=== PATIENT | female | born 2000 | race Asian ===

== ENCOUNTER 2018-07-22 19:50 | Emergency (ER) | payer MEDICAID, OTHER ==
[~2018-07-22] VITALS: Ht 147.3 cm; Wt 56.0 kg
[2018-07-22 20:41] LABS: INR 1.2 INR; PROTHROMBIN TIME 11.9 SECONDS (9.0-12.0)
[2018-07-22 20:46] LABS: ALANINE AMINOTRANSFERASE 27 U/L (12-78); ALBUMIN 4.8 G/DL (3.4-5.0); ALBUMIN/GLOBULIN RATIO 1.1 (1.1-1.5); ALKALINE PHOSPHATASE 102 IU/L (20-180); ANION GAP 19 (8-16); ASPARTATE AMINO TRANSFERASE 12 U/L (10-37); BILIRUBIN,TOTAL 0.7 MG/DL (0.1-1.0); BLOOD UREA NITROGEN 18 MG/DL (7-18); BUN/CREATININE RATIO 19.1 (6.6-38.0); CALCIUM 9.8 MG/DL (8.5-10.1); CHLORIDE 103 MMOL/L (99-107); CREATININE 0.94 MG/DL (0.40-0.90); GLUCOSE 108 MG/DL (70-104); SODIUM 139 MMOL/L (135-145); TOTAL CARBON DIOXIDE 16.6 MMOL/L (24-32); TOTAL PROTEIN 9.2 G/DL (6.4-8.2); eGFR 77 ML/MIN
[2018-07-22 21:14] LABS: BASOPHILS % (AUTO) 0.1 % (0-1); EOSINOPHILS % (AUTO) 0 % (0-6); HEMATOCRIT 40.5 % (35.0-45.0); HEMOGLOBIN 13.5 g/dl (12.0-16.0); LYMPHOCYTES % (AUTO) 5.7 % (21-51); MEAN CORPUSCULAR HEMOGLOBIN 29.6 PG (27.0-31.0); MEAN CORPUSCULAR HGB CONC 33.3 g/dL (33.0-36.5); MEAN CORPUSCULAR VOLUME 89.1 FL (78-98); MEAN PLATELET VOLUME 7.2 FL (7.4-10.4); MONOCYTES # (AUTO) 0.4 X10'3 (0-0.9); MONOCYTES % (AUTO) 2.3 % (2-12); NEUTROPHILS # (AUTO) 16.1 X10'3 (1.8-7.7); NEUTROPHILS % (AUTO) 91.9 % (42-75); PLATELET COUNT 301 X10'3 (140-440); RED BLOOD COUNT 4.55 X10'6 (4.20-5.60); WHITE BLOOD COUNT 17.5 X10'3 (4.5-11.0)
[2018-07-22] MEDS ORDERED: normal saline 1000ML IV soln IVB ONE (21:30)
[2018-07-22] MEDS ORDERED: ondansetron/PF 4mg/2ml inj IV ONE (21:30)
[2018-07-22 21:33] LABS: URINE HCG NEGATIVE (NEG)
--- NOTE | 2018-07-22 21:49 | NUR ---
PT C/O FORCEFUL RETCHING STARTING AT 1400 TODAY, NOTED TO HAVE COFFEE GROUND EMESIS.
[2018-07-22 21:50] LABS: CLARITY,URINE SLIGHTLY CLOUDY (Clear); COLOR,URINE YELLOW (Yellow); GLUCOSE, URINE NEGATIVE (Neg); KETONES,URINE >=80 mg/dl (Neg); LEUKOCYTE ESTERASE ,URINE NEGATIVE (Neg); NITRITES, URINE NEGATIVE (Neg); OCCULT BLOOD,URINE LARGE (Neg); PH,URINE 5.5 (4.8-8.0); PROTEIN,URINE 100 mg/dl (Neg); UROBILINOGEN,URINE 0.2 E.U/dL (0.2-1.0)
[2018-07-22 21:52] LABS: UA COLLECTION TYPE CLN CATCH MIDSTREAM
[2018-07-22 22:03] LABS: GASTRIC OCCULT BLOOD POSITIVE (Neg)
--- NOTE | 2018-07-22 22:12 | NUR ---
NAUSEA IMPROVED AFTER MEDS, NO FURTHER EMESIS NOTED.
[2018-07-22] MEDS ORDERED: famotidine/PF 10 mg/ml inj IV ONE (22:30)
[2018-07-22 22:46] LABS: MUCUS STRANDS MANY /LPF (Neg); SQUAMOUS EPITHELIAL CELL,UR FEW /LPF (FEW)
[2018-07-22 22:47] LABS: RBC,URINE 20-50 /HPF (0-2); WBC,URINE 0-4 /HPF (0-4)
[2018-07-22 22:48] LABS: BACTERIA,URINE NONE SEEN /HPF (Neg)
[2018-07-22 22:49] LABS: HYALINE CASTS 0-3 /LPF (NEGATIVE)
[2018-07-22 22:54] LABS: ETHANOL < 0.010 GM/DL (0.0-0.010)
[2018-07-22] MEDS ORDERED: PANT-47 PO (23:02)
[2018-07-22] MEDS ORDERED: ONDA4TAB12 PO (23:03)
[2018-07-22 23:13] VITALS: BP 119/76
[2018-07-23 02:18] LABS: TOTAL CELLS COUNTED 100
[2018-07-23 02:19] LABS: PLATELET ESTIMATE NORMAL
== END 2018-07-22 23:15 | disposition home or self-care (01) ==
LOC: ER 19:51
DX: K92.0 Hematemesis (principal); K29.70 Gastritis, unspecified, without bleeding
CPT/HCPCS: 36415; 74176; 80053; 80320; 81001; 81025; 82271; 85025; 85610; 86885; 86900; 86901; 96361; 96374; 96375; 99284; J2405; J3490; J7030

== ENCOUNTER 2020-07-13 21:30 | Emergency (ER) | payer MEDICAID ==
[~2020-07-13] VITALS: Ht 149.9 cm; Wt 61.4 kg
[~2020-07-13 21:30] MED LIST: ONDA4TAB12 PO; PANT-47 PO
[2020-07-13 21:45] VITALS: BP 164/88
[2020-07-14] MEDS ORDERED: DOXYCYCLINE 100MG CAPSULE PO STA
[2020-07-14] MEDS ORDERED: DOXY100C43 PO (00:02)
== END 2020-07-14 00:11 | disposition home or self-care (01) ==
LOC: ER 21:31
DX: L03.211 Cellulitis of face (principal); F12.90 Cannabis use, unspecified, uncomplicated; Z79.2 Long term (current) use of antibiotics; Z79.899 Other long term (current) drug therapy
CPT/HCPCS: 99284

== ENCOUNTER 2023-12-17 11:08 | Emergency (ER) | payer MEDICAID ==
[~2023-12-17] VITALS: Ht 149.9 cm; Wt 48.9 kg
[~2023-12-17 11:08] MED LIST changes: +ONDA-243 PO; -ONDA4TAB12 PO
[2023-12-17] MEDS ORDERED: HYDR-3686 PO (12:25)
[2023-12-17] MEDS: hydrOXYzine 25 MG tablet PO ONE (12:28)
[2023-12-17 12:31] VITALS: BP 135/89; PULSE 88; RESP 17; TEMP 99.5; O2SAT 99
== END 2023-12-17 12:35 | disposition home or self-care (01) ==
LOC: ER 11:08
DX: R07.89 Other chest pain (principal); F12.90 Cannabis use, unspecified, uncomplicated; Z79.899 Other long term (current) drug therapy
CPT/HCPCS: 71045; 93005; 99283; Q0177

== ENCOUNTER 2025-02-14 16:48 | Emergency (ER) | payer MEDICAID, BC ==
[~2025-02-14] VITALS: Ht 149.9 cm; Wt 49.5 kg
[~2025-02-14 16:48] MED LIST changes: +HYDR-3686 PO
--- NOTE | 2025-02-14 17:21 | Physician Documentation ---
History of Present Illness Chief Complaint: Flank Pain Stated Complaint: KIDNEY STONES Primary Medical Doctor: [facility] Pleasant 24-year-old female that presents to the emergency department for evaluation of left lower abdominal pain left flank pain fever chills since Tuesday. Patient reports she has a history of UTIs and a history of renal calculi. Patient has reported at this time. Medication Reconciliation Allergies: Coded Allergies: latex (Verified Allergy, Unknown, RASH, 02/14/25) Scheduled Clindamycin HCl (Clindamycin HCl), 1 CAP PO Q8H Hydroxyzine Hcl (Atarax), 1 TAB PO BID Pantoprazole Sodium (PROTONIX tablet), 1 TAB PO DAILY Phenazopyridine Hcl (Pyridium tablet), 1 TAB PO Q8H Scheduled PRN ONDANSETRON ODT 4mg tablet (Ondansetron Odt), 1 TABLET PO Q6H PRN PRN for nausea/vomiting Past Medical History Past Medical History: No Pertinent History Past Surgical History: no surgical history Alcohol Use: None Drug Use: marijuana Lives with: Family Lives In: Home Review of Systems ROS As stated above in the HPI, otherwise all systems are reviewed and negative. Physical Exam Vital Signs: Heart Rate: 78, Respiratory Rate: 16, BP: 143/100, Pulse Oximetry: 100, Weight: 49.500 Oxygen Flow Rate: 0 Physical Exam VITALS: Reviewed and as above. GENERAL: Alert, no apparent distress. HEENT: Normocephalic, atraumatic, PERRL, EOMI, dry mucosa, no erythema RESPIRATORY: Lungs clear, normal breath sounds, no respiratory distress. CHEST: No accessory muscle use, no retractions CV: Regular rate, rhythm, no edema, no murmur, No: JVD GI: Soft, tenderness with palpation to the lower abdomen bilaterally, bowels sounds present, no rebound, guarding, or rigidity BACK: Positive CVA tenderness, no swelling. MUSCULOSKELETAL No deformities, no edema SKIN: Warm and dry, no rash NEURO: Oriented x4, No motor or sensory deficit PSYCH: Normal mood and affect, no agitation Progress Results/Orders Results/Orders Vital Signs 02/14/25 17:16 Pulse 78 Resp 16 B/P (MAP) 143/100 Pulse Ox 100 O2 Flow Rate 0 Medical Decision Making Additional information obtaine: other Findings Patient: 24-year-old female Presenting complaints: Dysuria, bilateral flank pain, fever with chills. Relevant history: Recurrent urinary tract infections (UTIs), renal calculi. ED course: Patient presented with several days of urinary symptoms and bilateral flank pain, accompanied by fever and chills. She denied gastrointestinal symptoms (nausea, vomiting, diarrhea). Urinalysis confirmed UTI. No evidence of sepsis or acute kidney injury on initial evaluation. ED interventions: Administered 1g IV ceftriaxone, Toradol injection, and Pyridium. Initiated oral clindamycin for outpatient therapy. Prescribed phenazopyridine for symptomatic relief. Discharge diagnosis: Acute urinary tract infection, likely complicated by history of renal calculi. Medications at discharge: Clindamycin (dose and duration per ED prescription). Phenazopyridine (as needed for dysuria, per prescription). Follow-up plan: Patient instructed to follow up with primary care provider for reassessment and further management, including evaluation for recurrent UTI and renal calculi. Advised to return to ED for worsening symptoms, recurrence, or development of new concerning symptoms (e.g., persistent fever, rigors, severe pain, inability to tolerate oral intake, or signs of systemic illness). Patient education and safety: Diagnosis, treatment plan, and return precautions were discussed verbally and provided in written form, consistent with best practices for ED discharge communication. Patient demonstrated understanding of instructions and opportunity for questions was provided. Disposition: Stable for discharge. No acute intervention required beyond current management. Continuity of care: Discharge summary to be sent to primary care provider to ensure seamless transition and follow-up. Differential Dx:Considerations: Urinary obstruction, Urinary tract infection, Other Departure Disposition: 01 HOME / SELF CARE / HOMELESS Impression: Primary Impression: Acute urinary tract infection Additional Impression: Costovertebral (angle) tenderness, bilateral Discharge Instructions: Pyelonephritis, Adult, Urinary Tract Infection, Adult Additional Instructions: You were treated today for a urinary tract infection (UTI) and received antibiotics and medicine to help with pain. You also have a history of kidney stones. Medications: You received an antibiotic called ceftriaxone (Rocephin) in the emergency department. You were prescribed clindamycin to continue at home. Take it exactly as directed. Finish the entire course, even if you start to feel better. You were prescribed Pyridium to help with burning or pain when you urinate. This medicine may turn your urine orange; this is normal. What to expect: Most people start to feel better within a few days of starting antibiotics. Drink plenty of water. Staying well-hydrated helps your body fight infection and may help prevent future kidney stones and UTIs. You may notice orange-colored urine from Pyridium. This is not harmful. Prevention tips: Drink enough fluids to keep your urine light yellow. Aim for at least 2 liters (about 8 cups) of water a day, unless your doctor tells you otherwise. Urinate when you feel the urge; do not hold it. Practice good hygiene: wipe from front to back after using the toilet. If you have a history of kidney stones, continue any dietary or medication recommendations from your doctor to help prevent new stones.[8-9] Follow-up: Schedule a follow-up appointment with your primary care provider within the next week, or sooner if you do not improve. If you have frequent UTIs or kidney stones, your doctor may recommend further tests or changes to your treatment plan. When to return to the emergency department: If you develop worsening pain in your back or sides (flank pain) If you have fever that does not go away, chills, or feel very sick If you cannot keep fluids or medicine down due to vomiting If you notice blood in your urine, or have trouble urinating If your symptoms do not improve after 2-3 days of antibiotics Questions: If you have any questions about your medicines or symptoms, call your doctor or pharmacist. Remember: Take all medicines as prescribed, drink plenty of fluids, and follow up as directed. If you feel worse or have new symptoms, seek medical care right away. Referrals: NO PRIMARY CARE PROVIDER (PCP) Prescriptions Phenazopyridine Hcl (Pyridium tablet) 100 Mg Tablet 1 TAB PO Q8H for urinary discomfort for 2 Days, #6 TAB 0 Refills Prov: SAVANA SHEN 02/14/25 Clindamycin HCl (Clindamycin HCl) 300 Mg Capsule 1 CAP PO Q8H for 10 Days, #30 CAP Prov: SAVANA SHEN 02/14/25 Education Educated: Patient Educated regarding: diagnosis, treatment, need for follow up Signature Scribe Signature: A Attestation: Scribed for Savana Shen by CIARAN Bertrand . 02/14/25 23:50 SAVANA SHEN Feb 14, 2025 17:21
[2025-02-14 18:08] LABS: MEAN PLATELET VOLUME 7.2 FL (7.4-10.4); RED CELL DISTRIBUTION WIDTH 13.0 % (11.5-14.5)
[2025-02-14 18:18] LABS: CREATININE 0.71 MG/DL (0.40-0.90); TOTAL CARBON DIOXIDE 26.8 MMOL/L (24-32); eCRCL 82 ML/MIN; eGFR > 90 ML/MIN
[2025-02-14 19:12] LABS: LEUKOCYTE ESTERASE ,URINE MODERATE (Neg); NITRITES, URINE NEGATIVE (Neg); OCCULT BLOOD,URINE LARGE (Neg)
[2025-02-14 19:25] LABS: URINE HCG NEGATIVE (NEG)
[2025-02-14 19:48] LABS: UA COLLECTION TYPE CLN CATCH MIDSTREAM
[2025-02-14 19:49] LABS: MUCUS STRANDS NONE SEEN /LPF (Neg); SQUAMOUS EPITHELIAL CELL,UR FEW /LPF (FEW)
[2025-02-14 20:39] VITALS: BP 127/85; PULSE 75; RESP 15; O2SAT 100
[2025-02-14] MEDS: phenazopyridine 100mg tablet PO ONE (21:46)
[2025-02-14] MEDS: ketorolac trometh 30MG/ML vial 30 MG/ML VIAL IM ONE (21:47)
[2025-02-14] MEDS: CefTRIAXone 1000mg IM Kit (w/lidocaine diluent) IM ONE (21:47)
[2025-02-14] MEDS ORDERED: CLIN300C54 PO (22:13)
[2025-02-14] MEDS ORDERED: PHEN-786 PO (22:13)
--- NOTE | 2025-02-15 00:08 | RADIOLOGY REPORT ---
INDICATION: Pain, hx of renal calculi TECHNIQUE: Multiple real-time sonographic images of the kidneys and bladder were obtained. COMPARISON: None FINDINGS: RIGHT kidney measures 9.0 cm in length. No stones or hydronephrosis. LEFT kidney measures 9.2 cm in length. Nonobstructing calculus measuring 6 mm at the midpole. No hydronephrosis. Urinary bladder is empty. IMPRESSION: Nonobstructing left renal calculus. No hydronephrosis.
== END 2025-02-14 23:49 | disposition home or self-care (01) ==
LOC: ER 16:49
DX: N39.0 Urinary tract infection, site not specified (principal); N20.0 Calculus of kidney; F12.90 Cannabis use, unspecified, uncomplicated; Z87.440 Personal history of urinary (tract) infections; Z87.442 Personal history of urinary calculi; Z91.040 Latex allergy status; Z79.899 Other long term (current) drug therapy
CPT/HCPCS: 36415; 76770; 80053; 81001; 81025; 83690; 85025; 87088; 96372; 99285; J0696; J1885